=== PATIENT | female | born 1985 | race Caucasian/White ===

== ENCOUNTER 2017-03-31 19:06 | Emergency (ER) | payer OTHER ==
[~2017-03-31 19:06] MED LIST: NO MEDICATIONS
== END 2017-03-31 20:42 | disposition home or self-care (01) ==
LOC: SED 19:06
DX: L50.9 Urticaria, unspecified (principal); F17.200 Nicotine dependence, unspecified, uncomplicated; Z86.19 Personal history of other infectious and parasitic diseases
CPT/HCPCS: 99282